=== PATIENT | female | born 1970 | race Caucasian/White ===

== ENCOUNTER 2017-07-26 12:42 | Emergency (ER) | payer SELFPAY ==
[~2017-07-26 12:42] MED LIST: CIPR500T4 PO; LORTA5 PO; ZOFR4TAB3 SL
[2017-07-26 12:43] VITALS: BP 187/97; PULSE 81; RESP 24; TEMP 97.5; O2SAT 96
[2017-07-26 14:17] LABS: AUTOMATED NEUTROPHIL # 6.4 TH/MM3 (1.8-7.7); BASOPHIL # 0.1 TH/MM3 (0-0.2); BASOPHIL % 1.2 % (0.0-2.0); EOSINOPHIL # 0.1 TH/MM3 (0-0.4); EOSINOPHIL % 0.8 % (0.0-4.0); HEMATOCRIT 47.1 % (35.0-46.0); HEMOGLOBIN 16.4 GM/DL (11.6-15.3); LYMPH % 14.4 % (9.0-44.0); LYMPHOCYTE # 1.2 TH/MM3 (1.0-4.8); MEAN CELL VOLUME 90.1 FL (80.0-100.0); MEAN CORPUSCULAR HEMOGLOBIN 31.5 PG (27.0-34.0); MEAN CORPUSCULAR HGB CONC 34.9 % (32.0-36.0); MEAN PLATELET VOLUME 8.6 FL (7.0-11.0); MONO % 6.8 % (0.0-8.0); MONOCYTE # 0.6 TH/MM3 (0-0.9); NEUT % 76.8 % (16.0-70.0); PLATELET COUNT 332 TH/MM3 (150-450); RED BLOOD COUNT 5.22 MIL/MM3 (4.00-5.30); RED CELL DISTRIBUTION WIDTH 13.9 % (11.6-17.2); WHITE BLOOD COUNT 8.4 TH/MM3 (4.0-11.0)
[2017-07-26 14:27] LABS: BACTERIA, URINE MOD /hpf; BLOOD, URINE MOD (NEG); GLUCOSE,URINE TRACE mg/dL (NEG); HYALINE CAST, URINE 3 /lpf (RARE); KETONE, URINE 10 mg/dL (NEG); MUCUS URINE MANY /lpf (OCC); NITRITE,URINE NEG (NEG); PH, URINE 5.5 (5.0-8.5); SQUAMOUS EPITHELIAL CELL URINE 7 /hpf (0-5); URINE COLOR DARK-YELLOW (YELLW/STRAW); URINE LEUKOCYTE ESTERASE LARGE (NEG)
[2017-07-26 14:28] LABS: ALBUMIN 4.4 GM/DL (3.4-5.0); ALT (GPT) 25 U/L (10-53); AST (GOT) 17 U/L (15-37); BICARBONATE 27.3 MEQ/L (21.0-32.0); BLOOD UREA NITROGEN 7 MG/DL (7-18); CALCIUM 9.6 MG/DL (8.5-10.1); CHLORIDE 100 MEQ/L (98-107); CREATININE 1.01 MG/DL (0.50-1.00); GLOMERULAR FILTRATION RATE 59 ML/MIN (>89); GLUCOSE,RANDOM 105 MG/DL (74-106); LIPASE 119 U/L (73-393); SODIUM (NA) 136 MEQ/L (136-145)
[2017-07-26 14:29] LABS: BILIRUBIN, URINE NEG (NEG)
[2017-07-26 14:30] LABS: ALKALINE PHOSPHATASE 56 U/L (45-117); TOTAL BILIRUBIN ADULT 0.8 MG/DL (0.2-1.0); TOTAL PROTEIN 8.3 GM/DL (6.4-8.2)
--- NOTE | 2017-07-26 15:59 | PD ---
HPI Chief Complaint: GI Complaint Time Seen by Provider: 15:49 Travel History International Travel<30 days: No Contact w/Intl Traveler<30days: No Traveled to known affect area: No History of Present Illness HPI 47 YO F presents to the ED for evaluation of "months" long history of intermittent nausea and vomiting. Patient states the nausea has been constant now for about 2 weeks. She endorses chronic cough, no worse today. She is a current smoker. 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 She states that her abdominal muscles hurt from vomiting. Pain is rated 10/10, cramping, worsened by vomiting and dry heaving. She denies sinus congestion, headache, dizziness, sore throat, internal abdominal pain, dysuria, urinary urgency, vaginal discharge, vaginal odor, changes in bowel habits. She denies risk of , states that she is "fixed." She also complains of a few month history of painless lump in the left breast. She is unsure if there is any family history of breast cancer. She does not have a primary care provider. No treatment at home. PFSH Past Medical History Diminished Hearing: No ?: Unknown LMP: none in 3 months Para: 3 Tubal Ligation: Yes Past Surgical History Section: Yes Social History Alcohol Use: Yes Tobacco Use: Yes Substance Use: Yes Allergies-Medications (Allergen,Severity, Reaction): Coded Allergies: No Known Allergies (Verified , 10/20/15) Reported Meds & Prescriptions Reported Meds & Active Scripts Active Bactrim DS (Sulfamethoxazole-Trimethoprim) 800-160 Mg Tab 1 Tab PO BID Zofran Odt (Ondansetron Odt) 4 Mg Tab 4 Mg SL Q6HR PRN Zofran ODT (Ondansetron HCl) 4 Mg Tab 4 Mg SL Q8HR PRN FOR NAUSEA/VOMITING [place] 5-325 mg (Hydrocodone-Acetaminophen 5-325 mg) 5 mg/325 mg Tab 1 Tab PO Q6H PRN Zofran ODT (Ondansetron HCl) 4 Mg Tab 4 Mg SL Q6H PRN FOR NAUSEA/VOMITING Cipro (Ciprofloxacin HCl) 500 Mg Tab 500 Mg PO BID 7 Days Review of Systems Except as stated in HPI: all other systems reviewed are Neg Physical Exam Narrative GENERAL: Well-nourished, well-developed petite white female in no acute distress. SKIN: Focused skin assessment warm/dry. BREAST: Bilateral breast exam reveals no palpable mass. No tenderness. No peau d'orange. No nipple discharge HEAD: Normocephalic. EYES: No scleral icterus. No injection or drainage. ENT: Pearly bain tympanic membranes bilaterally. Oropharynx without erythema, edema, exudate. NECK: Supple, trachea midline. No JVD or lymphadenopathy. CARDIOVASCULAR: Regular rate and rhythm without murmurs, gallops, or rubs. RESPIRATORY: Breath sounds air and equal bilaterally. No accessory muscle use. GASTROINTESTINAL: Abdomen soft, non-tender, nondistended. Active bowel sounds. MUSCULOSKELETAL: No cyanosis, or edema. Walks with a normal gait. BACK: Nontender without obvious deformity. No CVA tenderness. Data Data Last Documented VS Vital Signs Date Time Temp Pulse Resp B/P (MAP) Pulse Ox O2 Delivery O2 Flow Rate FiO2 07/26/17 17:03 07/26/17 12:43 97.5 81 24 96 Orders Orders Complete Blood Count With Diff (07/26/17 13:29) Comprehensive Metabolic Panel (07/26/17 13:29) Urinalysis - C+S If Indicated (07/26/17 13:29) Lipase (07/26/17 13:29) Ed Urine Pregnancytest Poc (07/26/17 13:29) Urine Culture (07/26/17 13:50) Ondansetron Odt (Zofran Odt) (07/26/17 16:00) Ed Discharge Order (07/26/17 16:21) Labs Laboratory Tests Test 07/26/17 13:50 White Blood Count 8.4 TH/MM3 Red Blood Count 5.22 MIL/MM3 Hemoglobin 16.4 GM/DL Hematocrit 47.1 % Mean Corpuscular Volume 90.1 FL Mean Corpuscular Hemoglobin 31.5 PG Mean Corpuscular Hemoglobin Concent 34.9 % Red Cell Distribution Width 13.9 % Platelet Count 332 TH/MM3 Mean Platelet Volume 8.6 FL Neutrophils (%) (Auto) 76.8 % Lymphocytes (%) (Auto) 14.4 % Monocytes (%) (Auto) 6.8 % Eosinophils (%) (Auto) 0.8 % Basophils (%) (Auto) 1.2 % Neutrophils # (Auto) 6.4 TH/MM3 Lymphocytes # (Auto) 1.2 TH/MM3 Monocytes # (Auto) 0.6 TH/MM3 Eosinophils # (Auto) 0.1 TH/MM3 Basophils # (Auto) 0.1 TH/MM3 CBC Comment DIFF FINAL Differential Comment Urine Color DARK-YELLOW Urine Turbidity HAZY Urine pH 5.5 Urine Specific Baker 1.030 Urine Protein 100 mg/dL Urine Glucose (UA) TRACE mg/dL Urine Ketones 10 mg/dL Urine Occult Blood MOD Urine Nitrite NEG Urine Bilirubin NEG Urine Urobilinogen 4.0 MG/DL Urine Leukocyte Esterase LARGE Urine RBC 11 /hpf Urine WBC 94 /hpf Urine Squamous Epithelial Cells 7 /hpf Urine Bacteria MOD /hpf Urine Hyaline Casts 3 /lpf Urine Mucus MANY /lpf Microscopic Urinalysis Comment CULTURE INDICATED Blood Urea Nitrogen 7 MG/DL Creatinine 1.01 MG/DL Random Glucose 105 MG/DL Total Protein 8.3 GM/DL Albumin 4.4 GM/DL Calcium Level 9.6 MG/DL Alkaline Phosphatase 56 U/L Aspartate Amino Transf (AST/SGOT) 17 U/L Alanine Aminotransferase (ALT/SGPT) 25 U/L Total Bilirubin 0.8 MG/DL Sodium Level 136 MEQ/L Potassium Level 3.6 MEQ/L Chloride Level 100 MEQ/L Carbon Dioxide Level 27.3 MEQ/L Anion Gap 9 MEQ/L Estimat Glomerular Filtration Rate 59 ML/MIN Lipase 119 U/L MDM Medical Decision Making Medical Screen Exam Complete: Yes Emergency Medical Condition: Yes Differential Diagnosis URI versus UTI versus breast mass versus other Narrative Course 47 YO F presents to the ED for evaluation of "months" long history of intermittent nausea and vomiting. Patient states the nausea has been constant now for about 2 weeks. She states that her abdominal muscles hurt from vomiting. She denies sinus congestion, headache,dizziness, sore throat, internal abdominal pain, dysuria, urinary urgency, vaginal discharge, vaginal odor, changes in bowel habits, risk of . She also complains of a few month history of painless lump in the left breast. She is unsure if there is any family history of breast cancer. He does not have a primary care provider. Patient afebrile, pulse 81 on presentation. Physical exam reveals a petite white female in no acute distress. ENT exam is unremarkable. Breast exam is unremarkable. Abdominal exam was unremarkable. No CVA tenderness noted. She was administered ODT Zofran and immediately stopped retching. She was observed to drink fluids in triage. No concerning abnormalities of the CBC or CMP. UA dark yellow, hazy, large leukocyte esterase, 94 WBCs, moderate bacteria. Culture pending. This is UTI. Patient's prescribed Bactrim DS twice a day 5 days. She is also prescribed a few doses of Zofran. She is instructed to follow-up with the [facility] to establish PCP and have a mammogram. She is instructed take every dose of antibiotic until they are all gone, follow with the [place] [facility]. She is stable and discharged home. Diagnosis Primary Impression: Urinary tract infection Qualified Codes: N39.0 - Urinary tract infection, site not specified Additional Impressions: Left breast mass Nausea and vomiting Qualified Codes: R11.2 - Nausea with vomiting, unspecified Referrals: [facility] Patient Instructions: General Instructions, Urinary Tract Infection in Women ( ED) Additional Instructions: Rest, hydrate. Take each dose of antibiotic as prescribed until every pill is gone. Zofran every 6 hours as needed for continued nausea. Follow-up with the [facility] to establish primary care and have a mammogram performed top rule out breast cancer. Return to the ED for worsening symptoms or any urgent or emergent medical condition. Med/Other Pt SpecificInfo: Prescription(s) given Scripts Sulfamethoxazole-Trimethoprim (Bactrim DS) 800-160 Mg Tab 1 TAB PO BID for Infection, #10 TAB 0 Refills Prov: Eva Marshall MD 07/26/17 Ondansetron Odt (Zofran Odt) 4 Mg Tab 4 MG SL Q6HR Y for Nausea/Vomiting, #6 TAB 0 Refills Prov: Eva Marshall MD 07/26/17 Disposition: DISCHARGE HOME Condition: Stable Roxana Bazan Jul 26, 2017 15:59
[2017-07-26] MEDS ORDERED: ONDANSETRON ODT 4 MG TAB PO ONE (16:00)
[2017-07-26] MEDS ORDERED: ZOFR4TAB3 SL (16:21)
[2017-07-26] MEDS ORDERED: BACT800T5 PO (16:21)
== END 2017-07-26 17:05 | disposition home or self-care (01) ==
LOC: NEPK 12:42
DX: N39.0 Urinary tract infection, site not specified (principal); N63.20 Unspecified lump in the left breast, unspecified quadrant; R11.2 Nausea with vomiting, unspecified; B96.20 Unspecified Escherichia coli [E. coli] as the cause of diseases classified elsewhere
CPT/HCPCS: 80053; 81001; 83690; 85025; 87077; 87086; 87186; 99284